=== PATIENT | male | born 1975 | race Caucasian/White ===

== ENCOUNTER 2024-06-22 14:15 | Emergency (ER) | payer SELFPAY ==
[2024-06-22] VITALS (8 sets, daily range): BP systolic 126–145; BP diastolic 78–91; PULSE 97–120; RESP 16–18; TEMP 36.8; O2SAT 92–99; BMI 28.0
--- NOTE | 2024-06-22 15:37 | W.ED.GENADLT ---
Documented by User: Ari Loo DO 06/24/24 06:04 HPI - General Adult General: Chief complaint: General Medical Stated complaint: Headache, SOB, neck hurting Time Seen by Provider: 06/22/24 15:20 History of Present Illness: 49-year-old male presents emergency room complaining of generally not feeling well, neck pain short of breath nonproductive cough been going on for last couple of days. No chest pain no abdominal pain. Denies any diarrhea no hematochezia or melena. He has not noted anything that aggravates or relieves his symptoms. He is mildly tachycardic on arrival no history of DVT or PE Associated symptoms: Reports dyspnea and headache(s); Deny chest pain or rash Review of Systems Const: Denies: fever(s) or chills Card: Denies: chest pain Resp: Reports: dyspnea and non-productive cough GI: Denies: abdominal pain : Denies: dysuria, urinary frequency or urinary urgency Musc: Reports: neck pain; Denies: back pain Skin/Breast: Denies: rash Neuro: Reports: headache(s) PFS ED PFSH: Medical History (Updated 06/22/24 @ 19:14 by Sathya Newberry DO) HTN (hypertension) Palpitations Physical Exam Const: COMMON NORMALS: no acute distress GENERAL APPEARANCE: cooperative ORIENTATION/CONSCIOUSNESS: Yes awake, Yes oriented to person, Yes oriented to place and Yes oriented to time HENMT: COMMON NORMALS: normocephalic, atraumatic and hearing grossly normal bilaterally HEAD & SCALP: normocephalic and atraumatic Resp: COMMON NORMALS: normal respiratory effort, No retractions, No use of accessory muscles and clear to auscultation bilaterally AUSCULTATION: clear to auscultation bilaterally Cardio: COMMON NORMALS: regular rate, regular rhythm and No murmurs present (Cardio) RATE: regular rate RHYTHM: regular rhythm GI: COMMON NORMALS: Soft to palpation and No hepatosplenomegaly present AUSCULTATION: Yes normoactive bowel sounds PALPATION: Yes Soft to palpation, No Tenderness to palpation present (GI), No Guarding due to palpation present (GI) and Yes No hepatosplenomegaly present Extremity: COMMON NORMALS: normal to inspection, capillary refill normal, no clubbing, cyanosis or edema, no calf tenderness and no pedal edema Neuro: SENSORIUM/ORIENTATION: Yes oriented to person, Yes oriented to place and Yes oriented to time Skin: COMMON NORMALS: no rashes or lesions noted GENERAL SKIN EXAM: no rashes or lesions noted Course Vital Signs: Vital signs: Vital Signs Temperature 98.3 F 06/22/24 20:36 Pulse Rate 108 H 06/22/24 20:36 Respiratory Rate 16 06/22/24 20:36 Blood Pressure 145/91 06/22/24 20:36 Pulse Oximetry 99 06/22/24 20:36 Oxygen Delivery Me thod Room Air 06/22/24 18:07 MDM - General Adult Medical Decision Making Care signed out to Dr. Newberry at change of shift. See final notes for diagnosis and disposition. Lab Data 06/22/24 15:25 06/22/24 15:25 Radiology Impressions Chest X-Ray 06/22/24 15:40 IMPRESSION: Mild bibasilar peribronchial thickening suggestive of bronchitis or early bronchopneumonia, otherwise without confluent consolidation at this time. Chest CTA 06/22/24 17:08 IMPRESSION: 1. No evidence of pulmonary embolism to the segmental level. Limited evaluation of distal segmental and subsegmental branches . 2. Moderate emphysema. Mild patchy bibasilar atelectasis and peribronchial thickening, please correlate clinically for any evidence of COPD exacerbation. No focal pneumonic consolidation. 3. Mild diffuse hepatic steatosis. 4. Partially imaged transverse colonic wall thickening suggestive colitis. COMMENTS: The presence of pulmonary emphysema on CT is an independent risk factor for lung cancer. In the absence of a history or active diagnosis of lung cancer, it is recommended that this patient with emphysema be evaluated for enrollment in a low dose CT lung cancer screening program. Laboratory Results WBC 10.54 10^3/uL (3.29-11.43) 06/22/24 15:25 RBC 4.39 10^6/uL (3.85-5.65) 06/22/24 15:25 Hgb 14.40 g/dL (11.27-16.99) 06/22/24 15:25 Hct 42.4 % (37-53) 06/22/24 15:25 MCV 96.6 fl (82-101) 06/22/24 15:25 MCH 32.8 pg (27-33) 06/22/24 15:25 MCHC 34.0 g/dL (30-55) 06/22/24 15:25 RDW 14.3 % (12.1-15.1) 06/22/24 15:25 Plt Count 266 10^3/cmm (157-399) 06/22/24 15:25 MPV 10.6 fL (7.4-10.4) H 06/22/24 15:25 Neut % (Auto) 76.4 % 06/22/24 15:25 Lymph % (Auto) 15.2 % 06/22/24 15:25 Mckean % (Auto) 6.9 % 06/22/24 15:25 Eos % (Auto) 0.7 % 06/22/24 15:25 Baso % (Auto) 0.4 % 06/22/24 15:25 Neut # (Auto) 8.06 10^3/uL (1.8-7.7) H 06/22/24 15:25 Lymph # (Auto) 1.6 10^3/uL (0.8-4.8) 06/22/24 15:25 Mckean # (Auto) 0.7 10^3/uL (0.2-0.9) 06/22/24 15:25 Eos # (Auto) 0.1 10^3/uL (0.0-0.8) 06/22/24 15:25 Baso # (Auto) 0.0 10^3/uL (0.0-0.1) 06/22/24 15:25 Nucleated RBC % (auto) 0 % 06/22/24 15:25 Nucleated RBCs # 0.0 /100WBC 06/22/24 15:25 D-Dimer 10.11 ug/mLFEU (0-0.59) H 06/22/24 15:25 Sodium 139 mmol/L (136-145) 06/22/24 15:25 Potassium 3.8 mmol/L (3.5-5.1) 06/22/24 15:25 Chloride 104 mmol/L (98-107) 06/22/24 15:25 Carbon Dioxide 23 mmol/L (22-29) 06/22/24 15:25 Anion Gap 15.8 (5-19) 06/22/24 15:25 BUN 8 mg/dL (6-20) 06/22/24 15:25 Creatinine 0.8 mg/dL (0.7-1.2) 06/22/24 15:25 GFR Calculation 101.9 mL/min (90-130) 06/22/24 15:25 Glucose 123 mg/dL (65-115) H 06/22/24 15:25 Calculated Osmolality 288 mOsm/kg (285-295) 06/22/24 15:25 Lactic Acid 2.1 mmol/L (0.5-2.2) 06/22/24 15:25 Lactic Acid (Sepsis) 0.9 mmol/L (0.5-2.2) 06/22/24 18:13 Calcium 8.8 mg/dL (8.5-10.5) 06/22/24 15:25 Total Bilirubin 0.4 mg/dL (0.15-1.2) 06/22/24 15:25 AST 17 U/L (0-40) 06/22/24 15:25 ALT 16 U/L (0-41) 06/22/24 15:25 Alkaline Phosphatase 130 U/L (40-130) 06/22/24 15:25 Troponin T Baseline 13 ng/L (0-15) 06/22/24 15:25 Troponin T 120 Minute 11.70 ng/L (0-15) 06/22/24 17:20 Delta Troponin T -1.30 ABS# (0-10) L 06/22/24 17:20 Total Protein 7.3 g/dL (6.6-8.7) 06/22/24 15:25 Albumin 4.2 g/dL (3.5-5.2) 06/22/24 15:25 Globulin 3.1 g/dL (1.3-4.6) 06/22/24 15:25 Lyme Ab (Western Blot) <0.90 index 06/22/24 16:18 Coronavirus 229E (PCR) Not detected (NOT DETECT) 06/22/24 15:47 SARS-CoV-2 (PCR) Not detected (NOT DETECT) 06/22/24 15:47 Discharge Plan Discharge Patient Disposition: Home Clinical Impression: COPD, moderate Condition: Stable Prescriptions: New prednisone 50 mg tablet 50 mg PO DAILY Qty: 5 0RF amoxicillin-pot clavulanate 875-125 mg tablet 1 tab PO Q12H Qty: 20 0RF albuterol sulfate 90 mcg/actuation HFA aerosol inhaler 2 inh inhalation QID PRN (Reason: shortness of breath or wheezing) Qty: 8.5 0RF Discharge Orders: Discharge ED (Routine); Ordered 06/22/24 Ordered By: Satyha Newberry Patient Instructions: COPD (Chronic Obstructive Pulmonary Disease) (ED) Activity Restrictions/Additional Instructions: Your CT scan of your chest showed you have moderate to COPD but no blood clot. This may be due to all your years of history of smoking. Please take all medicine as directed. Please follow-up with your family practice doctor the next 7 to 10 days for further evaluation and treatment. Thank you for choosing [facility] for your healthcare needs today. Please realize that you were seen in the emergency department and that we are providing you with an emergency medical screening exam and this may not be a complete and all exclusive of all testing and/or medical workup we may need to determine your element or severity of your illness. It is very important that you follow-up as instructed with your primary care provider or specialist for the additional evaluation and to discuss your medical treatment plan. You may return to the emergency department should you have concerns or if your condition changes or worsens in any way. Coding Level of Care Code ED Supervisor In Circuit Testing for Chg Fwd Documented by User: Sathya Newberry DO 06/22/24 19:16 HPI - General Adult General: Chief complaint: General Medical Stated complaint: Headache, SOB, neck hurting Time Seen by Provider: 06/22/24 15:20 [facility] ED PFSH: Medical History (Updated 06/22/24 @ 19:14 by Sathya Newberry DO) HTN (hypertension) Palpitations Course Vital Signs: Vital signs: Vital Signs Temperature 98.3 F 06/22/24 20:36 Pulse Rate 108 H 06/22/24 20:36 Respiratory Rate 16 06/22/24 20:36 Blood Pressure 145/91 06/22/24 20:36 Pulse Oximetry 99 06/22/24 20:36 Oxygen Delivery Me thod Room Air 06/22/24 18:07 MDM - General Adult Medical Decision Making Care signed out to Dr. Newberry at change of shift. See final notes for diagnosis and disposition. Care turned over at shift change, the patient CTA showed no evidence of PE, did show evidence of moderate emphysema. Patient did admit to being a smoker of 20 to 30-year history but quit a while back per him. Patient results was discussed with him in detail. Will place patient on albuterol and prednisone. Patient be discharged back to follow-up with his primary care doctor. Lab Data 06/22/24 15:25 06/22/24 15:25 Radiology Impressions Chest X-Ray 06/22/24 15:40 IMPRESSION: Mild bibasilar peribronchial thickening suggestive of bronchitis or early bronchopneumonia, otherwise without confluent consolidation at this time. Chest CTA 06/22/24 17:08 IMPRESSION: 1. No evidence of pulmonary embolism to the segmental level. Limited evaluation of distal segmental and subsegmental branches . 2. Moderate emphysema. Mild patchy bibasilar atelectasis and peribronchial thickening, please correlate clinically for any evidence of COPD exacerbation. No focal pneumonic consolidation. 3. Mild diffuse hepatic steatosis. 4. Partially imaged transverse colonic wall thickening suggestive colitis. COMMENTS: The presence of pulmonary emphysema on CT is an independent risk factor for lung cancer. In the absence of a history or active diagnosis of lung cancer, it is recommended that this patient with emphysema be evaluated for enrollment in a low dose CT lung cancer screening program. Laboratory Results WBC 10.54 10^3/uL (3.29-11.43) 06/22/24 15:25 RBC 4.39 10^6/uL (3.85-5.65) 06/22/24 15:25 Hgb 14.40 g/dL (11.27-16.99) 06/22/24 15:25 Hct 42.4 % (37-53) 06/22/24 15:25 MCV 96.6 fl (82-101) 06/22/24 15:25 MCH 32.8 pg (27-33) 06/22/24 15:25 MCHC 34.0 g/dL (30-55) 06/22/24 15:25 RDW 14.3 % (12.1-15.1) 06/22/24 15:25 Plt Count 266 10^3/cmm (157-399) 06/22/24 15:25 MPV 10.6 fL (7.4-10.4) H 06/22/24 15:25 Neut % (Auto) 76.4 % 06/22/24 15:25 Lymph % (Auto) 15.2 % 06/22/24 15:25 Mckean % (Auto) 6.9 % 06/22/24 15:25 Eos % (Auto) 0.7 % 06/22/24 15:25 Baso % (Auto) 0.4 % 06/22/24 15:25 Neut # (Auto) 8.06 10^3/uL (1.8-7.7) H 06/22/24 15:25 Lymph # (Auto) 1.6 10^3/uL (0.8-4.8) 06/22/24 15:25 Mckean # (Auto) 0.7 10^3/uL (0.2-0.9) 06/22/24 15:25 Eos # (Auto) 0.1 10^3/uL (0.0-0.8) 06/22/24 15:25 Baso # (Auto) 0.0 10^3/uL (0.0-0.1) 06/22/24 15:25 Nucleated RBC % (auto) 0 % 06/22/24 15:25 Nucleated RBCs # 0.0 /100WBC 06/22/24 15:25 D-Dimer 10.11 ug/mLFEU (0-0.59) H 06/22/24 15:25 Sodium 139 mmol/L (136-145) 06/22/24 15:25 Potassium 3.8 mmol/L (3.5-5.1) 06/22/24 15:25 Chloride 104 mmol/L (98-107) 06/22/24 15:25 Carbon Dioxide 23 mmol/L (22-29) 06/22/24 15:25 Anion Gap 15.8 (5-19) 06/22/24 15:25 BUN 8 mg/dL (6-20) 06/22/24 15:25 Creatinine 0.8 mg/dL (0.7-1.2) 06/22/24 15:25 GFR Calculation 101.9 mL/min (90-130) 06/22/24 15:25 Glucose 123 mg/dL (65-115) H 06/22/24 15:25 Calculated Osmolality 288 mOsm/kg (285-295) 06/22/24 15:25 Lactic Acid 2.1 mmol/L (0.5-2.2) 06/22/24 15:25 Lactic Acid (Sepsis) 0.9 mmol/L (0.5-2.2) 06/22/24 18:13 Calcium 8.8 mg/dL (8.5-10.5) 06/22/24 15:25 Total Bilirubin 0.4 mg/dL (0.15-1.2) 06/22/24 15:25 AST 17 U/L (0-40) 06/22/24 15:25 ALT 16 U/L (0-41) 06/22/24 15:25 Alkaline Phosphatase 130 U/L (40-130) 06/22/24 15:25 Troponin T Baseline 13 ng/L (0-15) 06/22/24 15:25 Troponin T 120 Minute 11.70 ng/L (0-15) 06/22/24 17:20 Delta Troponin T -1.30 ABS# (0-10) L 06/22/24 17:20 Total Protein 7.3 g/dL (6.6-8.7) 06/22/24 15:25 Albumin 4.2 g/dL (3.5-5.2) 06/22/24 15:25 Globulin 3.1 g/dL (1.3-4.6) 06/22/24 15:25 Lyme Ab (Western Blot) <0.90 index 06/22/24 16:18 Coronavirus 229E (PCR) Not detected (NOT DETECT) 06/22/24 15:47 SARS-CoV-2 (PCR) Not detected (NOT DETECT) 06/22/24 15:47 All radiology interpretation(s) finalized by discharge Discharge Plan Discharge Patient Disposition: Home Clinical Impression: COPD, moderate Condition: Stable Prescriptions: New prednisone 50 mg tablet 50 mg PO DAILY Qty: 5 0RF amoxicillin-pot clavulanate 875-125 mg tablet 1 tab PO Q12H Qty: 20 0RF albuterol sulfate 90 mcg/actuation HFA aerosol inhaler 2 inh inhalation QID PRN (Reason: shortness of breath or wheezing) Qty: 8.5 0RF Discharge Orders: Discharge ED (Routine); Ordered 06/22/24 Ordered By: Sathya Newberry Patient Instructions: COPD (Chronic Obstructive Pulmonary Disease) (ED) Activity Restrictions/Additional Instructions: Your CT scan of your chest showed you have moderate to COPD but no blood clot. This may be due to all your years of history of smoking. Please take all medicine as directed. Please follow-up with your family practice doctor the next 7 to 10 days for further evaluation and treatment. Thank you for choosing [facility] for your healthcare needs today. Please realize that you were seen in the emergency department and that we are providing you with an emergency medical screening exam and this may not be a complete and all exclusive of all testing and/or medical workup we may need to determine your element or severity of your illness. It is very important that you follow-up as instructed with your primary care provider or specialist for the additional evaluation and to discuss your medical treatment plan. You may return to the emergency department should you have concerns or if your condition changes or worsens in any way. Coding Level of Care Code ED Supervisor In Circuit Testing for Jan Sauceda
--- NOTE | 2024-06-22 15:40 | XRR_ITS ---
PROCEDURE INFORMATION: Exam: XR Chest Exam date and time: 06/22/2024 4:45 PM Age: 49 years old Clinical indication: Cough and shortness of breath; Additional info: Dyspnea/cough TECHNIQUE: Imaging protocol: Radiologic exam of the chest. Views: 1 view. COMPARISON: No relevant prior studies available. FINDINGS: Lungs: Minor left basilar strand-like scar/atelectasis. Mild bibasilar peribronchial thickening No consolidation. Pleural spaces: Unremarkable. No pleural effusion. No pneumothorax. Heart/Mediastinum: Unremarkable. No cardiomegaly. Bones/joints: Unremarkable. XR/XR chest 1V portable [id number] IMPRESSION: Mild bibasilar peribronchial thickening suggestive of bronchitis or early bronchopneumonia, otherwise without confluent consolidation at this time.
[2024-06-22 15:51] LABS: Basophils % 0.4 %; Eosinophils # 0.1 10^3/uL (0.0-0.8); Eosinophils % 0.7 %; Hematocrit 42.4 % (37-53); Lymphocytes # 1.6 10^3/uL (0.8-4.8); Lymphocytes % 15.2 %; Mean Corpuscular Hemoglobin 32.8 pg (27-33); Mean Corpuscular Volume 96.6 fl (82-101); Mean Platelet Volume 10.6 fL (7.4-10.4); Monocytes # 0.7 10^3/uL (0.2-0.9); Monocytes % 6.9 %; Neutrophils # 8.06 10^3/uL (1.8-7.7); Neutrophils % 76.4 %; Nucleated Red Blood Cells % 0 %; Platelet Count 266 10^3/cmm (157-399); Red Blood Count 4.39 10^6/uL (3.85-5.65); Red Cell Distribution Width 14.3 % (12.1-15.1); White Blood Count 10.54 10^3/uL (3.29-11.43)
[2024-06-22] MEDS: sodium chloride 0.9% 1,000 ML 999 ML IV (16:04)
[2024-06-22 16:07] LABS: Alanine Aminotransferase 16 U/L (0-41); Albumin Level 4.2 g/dL (3.5-5.2); Alkaline Phosphatase 130 U/L (40-130); Anion Gap 15.8 (5-19); Aspartate Amino Transferase 17 U/L (0-40); Blood Urea Nitrogen 8 mg/dL (6-20); Calcium 8.8 mg/dL (8.5-10.5); Carbon Dioxide 23 mmol/L (22-29); Chloride 104 mmol/L (98-107); Creatinine Clr Calc Pharmacy 118.8107; Globulin 3.1 g/dL (1.3-4.6); Glomerular Filtration Rate 101.9 mL/min (90-130); Glucose 123 mg/dL (65-115); Osmolality Calculated 288 mOsm/kg (285-295); Potassium 3.8 mmol/L (3.5-5.1); Sodium 139 mmol/L (136-145); Total Bilirubin 0.4 mg/dL (0.15-1.2); Total Protein 7.3 g/dL (6.6-8.7)
[2024-06-22 16:08] LABS: Lactic Sepsis W/Reflex 2.1 mmol/L (0.5-2.2)
[2024-06-22] MEDS: methylPREDNISolone sod succ 125 mg/2 mL INJ IVP (16:33)
[2024-06-22] MEDS: ipratropium-albuterol 3 mL Neb INHALATION (16:45)
[2024-06-22 16:59] LABS: D Dimer 10.11 ug/mLFEU (0-0.59)
--- NOTE | 2024-06-22 17:02 | ECG_ITS ---
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 Measurements Intervals [place] Rate: 104 P: 48 [place]: 145 QRS: -55 QRSD: 107 T: 50 QT: 327 QTc: 431 Interpretive Statements SINUS TACHYCARDIA PATTERN CONSISTENT WITH PULMONARY DISEASE LEFT ANTERIOR FASCICULAR BLOCK [QRS AXIS <= -45, QR IN I, RS IN II] No previous ECG available for comparison Electronically Signed On 06-22-2024 18:10:14 CDT by Lasha Alexander M.D. [id number]
--- NOTE | 2024-06-22 17:08 | CTR_ITS ---
PROCEDURE INFORMATION: Exam: CTA Chest With Contrast Exam date and time: 06/22/2024 5:34 PM Age: 49 years old Clinical indication: Angina; Additional info: Chest pain dyspnea TECHNIQUE: Imaging protocol: Computed tomographic angiography of the chest with contrast. Exam focused on the arteries. 3D rendering (Not supervised by radiologist): MIP and/or 3D reconstructed images were created by the technologist. Radiation optimization: All CT scans at this facility use at least one of these dose optimization techniques: automated exposure control; mA and/or kV adjustment per patient size (includes targeted exams where dose is matched to clinical indication); or iterative reconstruction. Contrast material: OMNI 350; Contrast volume: 100 ml; Contrast route: INTRAVENOUS (IV); COMPARISON: CR XR chest 1V portable [id number] 06/22/2024 4:45 PM RADIATION DOSE METRICS: Total DLP (mGy-cm): 414 FINDINGS: Pulmonary arteries: Main pulmonary artery is normal in contour and caliber. No pulmonary emboli to the segmental branch level. Evaluation of some of the distal segmental and subsegmental branches is limited by suboptimal opacification. Aorta: Assessment of the ascending thoracic aorta limited by pulsation artifact without aneurysm formation or obvious dissection flap. Lungs: Moderate centrilobular emphysema. Patent central airways. Patchy bibasilar opacities in the lower lobes consistent with atelectatic change without focal consolidation. Mild bandlike atelectasis in the lingula. Mild peripheral bronchial wall thickening. Pleural spaces: Unremarkable. No pneumothorax. No pleural effusion. Heart: borderline cardiac silhouette size. Moderate coronary calcification. Lymph nodes: No axillary adenopathy. Borderline enlarged paratracheal and subcarinal adenopathy likely reactive. Liver: Mild diffuse hepatic steatosis. Spleen: Punctate calcified splenic granulomas. Intestine: Partially imaged transverse colon demonstrates mild diffuse wall thickening suggestive of colitis. Bones/joints: Moderate lower thoracic and upper lumbar spondylosis. Soft tissues: Unremarkable. CT/CT angio chest PE protcl [id number] IMPRESSION: 1. No evidence of pulmonary embolism to the segmental level. Limited evaluation of distal segmental and subsegmental branches . 2. Moderate emphysema. Mild patchy bibasilar atelectasis and peribronchial thickening, please correlate clinically for any evidence of COPD exacerbation. No focal pneumonic consolidation. 3. Mild diffuse hepatic steatosis. 4. Partially imaged transverse colonic wall thickening suggestive colitis. COMMENTS: The presence of pulmonary emphysema on CT is an independent risk factor for lung cancer. In the absence of a history or active diagnosis of lung cancer, it is recommended that this patient with emphysema be evaluated for enrollment in a low dose CT lung cancer screening program.
[2024-06-22 17:27] LABS: Reflex Lactate Order REFLEX LACTIC ORDERD
[2024-06-22 17:29] LABS: Troponin(5th) Baseline 13 ng/L (0-15)
[2024-06-22] MEDS: iohexol 350 mg/mL 500 mL Btl (per mL) IV (17:39)
[2024-06-22 17:48] LABS: Adenovirus Not Detected (NOT DETECT); Chlamydia Pneumoniae Not Detected (NOT DETECT); Coronavirus 229E,HKU1,NL63,OC4 Not Detected (NOT DETECT); Human Metapneumovirus Not Detected (NOT DETECT); Human Rhinovirus/Enterovirus Not Detected (NOT DETECT); Influenza A Not Detected (NOT DETECT); Influenza A H1 Not Detected (NOT DETECT); Influenza A H1-2009 Not Detected (NOT DETECT); Influenza A H3 Not Detected (NOT DETECT); Influenza B Not Detected (NOT DETECT); Mycoplasma Pneumoniae Not Detected (NOT DETECT); Parainfluenza Virus Type 1 Not Detected (NOT DETECT); Parainfluenza Virus Type 2 Not Detected (NOT DETECT); Parainfluenza Virus Type 3 Not Detected (NOT DETECT); Parainfluenza Virus Type 4 Not Detected (NOT DETECT); Respiratory Syncytial Virus A Not Detected (NOT DETECT); Respiratory Syncytial Virus B Not Detected (NOT DETECT); SARS-COV-2 Not Detected (NOT DETECT)
[2024-06-22 18:36] LABS: Lactic Acid level (Lactate) 0.9 mmol/L (0.5-2.2)
--- NOTE | 2024-06-22 18:47 | ECG_ITS ---
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 Measurements Intervals [place] Rate: 104 P: 54 [place]: 148 QRS: -49 QRSD: 108 T: 51 QT: 329 QTc: 434 Interpretive Statements SINUS TACHYCARDIA PATTERN CONSISTENT WITH PULMONARY DISEASE LEFT ANTERIOR FASCICULAR BLOCK [QRS AXIS <= -45, QR IN I, RS IN II] Compared to ECG 06/22/2024 17:02:34 No significant changes Electronically Signed On 06-23-2024 10:30:45 CDT by Lasha Alexander M.D. [id number]
[2024-06-23 13:59] LABS: Lyme AB Screen <0.90 index
[2024-06-26 21:44] LABS: E. Chaffeensis AB IGG <1:64; E. Chaffeensis AB IGM <1:20
[2024-06-29 16:09] LABS: RMSF IGG DETECTED; RMSF IGM NOT DETECTED
== END 2024-06-22 19:35 | disposition home or self-care (01) ==
PROVIDERS: Physician Assistant; Emergency Provider Family Medicine
DX: J44.9 Chronic obstructive pulmonary disease, unspecified (principal); I10 Essential (primary) hypertension; Z11.52 Encounter for screening for COVID-19
CPT/HCPCS: 36415; 71045; 71275; 80053; 83605; 84484; 85025; 85378; 86618; 86666; 86757; 87635; 93005; 94640; 96361; 96374; 99285; J2919; J7030; Q9967

== ENCOUNTER 2025-03-12 12:27 | Observation (INO) | payer OTHER, SELFPAY ==
[2025-03-12] VITALS (114 sets, daily range): BP systolic 114–157; BP diastolic 75–111; PULSE 68–104; RESP 12–32; TEMP 36.4; O2SAT 89–97
--- NOTE | 2025-03-12 12:36 | CTR_ITS ---
PROCEDURE INFORMATION: Exam: CT Head Without Contrast Exam date and time: 03/12/2025 12:35 PM Age: 50 years old Clinical indication: Stroke-like symptoms; Altered mental status/memory loss; Left upper extremity and left lower extremity numbness/paresthesia; Additional info: Stroke like symptoms TECHNIQUE: Imaging protocol: Computed tomography of the head without contrast. Radiation optimization: All CT scans at this facility use at least one of these dose optimization techniques: automated exposure control; mA and/or kV adjustment per patient size (includes targeted exams where dose is matched to clinical indication); or iterative reconstruction. Other technique: STROKE PROTOCOL was implemented. COMPARISON: No relevant prior studies available. RADIATION DOSE METRICS: Total DLP (mGy-cm): 1089.58 FINDINGS: Brain: Normal. No hemorrhage. Unremarkable white matter. No mass effect. Cerebral ventricles: No ventriculomegaly. Paranasal sinuses: Visualized sinuses are unremarkable. No fluid levels. Mastoid air cells: Visualized mastoid air cells are well aerated. Bones: Unremarkable. No acute fracture. Soft tissues: Unremarkable. CT/CT head thrombolytic [id number] IMPRESSION: No acute intracranial abnormality. ASSESSMENT: ASPECTS ([place] Stroke Program Early CT Score) is 10.
--- NOTE | 2025-03-12 12:50 | ECG_ITS ---
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1975 Requested By: Ari Hernandes Order Number: [id number] Alfonzo MD: ANDI YANCEY Measurements Intervals [place] Rate: 100 P: 50 [place]: 149 QRS: -64 QRSD: 102 T: 41 QT: 338 QTc: 436 Interpretive Statements SINUS TACHYCARDIA POSSIBLE LEFT ATRIAL ENLARGEMENT [-0.1mV P-WAVE IN V1/V2] PATTERN CONSISTENT WITH PULMONARY DISEASE INCOMPLETE RIGHT BUNDLE BRANCH BLOCK [90+ ms QRS DURATION, TERMINAL R IN V1/V2, 40+ ms S IN I/aVL/V4/V5/V6] LEFT ANTERIOR FASCICULAR BLOCK [QRS AXIS <= -45, QR IN I, RS IN II] Compared to ECG 06/22/2024 18:20:05 Incomplete right bundle-branch block now present Electronically Signed On 03-14-2025 20:59:49 CDT by ANDI YANCEY [id number]
--- NOTE | 2025-03-12 12:58 | ED_ITS ---
HPI - Neuro Symptoms/Deficit 2 General: Chief Complaint: Neuro Symptoms/Deficit Stated Complaint: stroke like symptoms Time Seen by Provider: 03/12/25 12:50 History of Present Illness: 50-[facility] left- sided weakness. He was at work and suddenly began around 12:00 today. He is complaining of left arm and leg weakness as well as some numbness in his face and difficulty with speech. His initial NIH was 5 Associated symptoms: Deny chest pain Related Data Home Medications ?Medication ?Instructions ?Recorded ?Confirmed ibuprofen 200 mg tablet (Advil) 400 - 600 mg PO Q6H MT N Fever Or 03/12/25 03/12/25 Pain ubtejuxlnrze-sdc-gvsyq acid-vit 1 tab PO DAILY 5 03/12/25 K-lycop 400 mcg-20 mcg-370 mcg tablet (Men's 50 Plus Multivitamin) Previous Rx's ?Medication ?Instructions ?Recorded albuterol sulfate 90 mcg/actuation 2 inh inhalation QI D PRN shortness 06/22/24 aerosol inhaler of breath or wheezing #8.5 g agustín Allergies Allergy/AdvReac Type Severity Reaction Status Date / Time No Known Allergies Allergy Verified 03/12/25 12:47 Review of Systems 2 Const: Denies: fever(s) or chills Card: Denies: chest pain Resp: Denies: dyspnea GI: Denies: abdominal pain : Denies: dysuria, urinary frequency or urinary urgency Musc: Denies: neck pain or back pain Skin/Breast: Denies: rash PFSH ED 2 PFSH: Medical History HTN (hypertension) Palpitations NIH stroke score 2 NIHSS: Level Of Consciousness - 1a: 0 Level Of Consciousness Questions - 1b: Both Correct Level Of Consciousness Commands - 1c: Both Correct Best Gaze - 2: Normal Visual Burciaga - 3: No Visual Loss Facial Palsy - 4: N ormal Motor Arm Right - 5: No Drift Motor Arm Left - 5: No Drift Motor Leg Right - 6: No Drift Motor Leg Left - 6: Drift Limb Ataxia - 7: Present In Two Limbs Sensory - 8: Mild To Moderate Loss Best Language - 9: M ild/Moderate Aphasia Dysarthia - 10: Normal Extinction And Inattention - 11: 0 Score: Total Score: 5 Physical Exam 2 Const: GENERAL APPEARANCE: cooperative ORIENTATION/CONSCIOUSNESS: Yes awake, Yes oriented to person, Yes oriented to place and Yes oriented to time HENMT: COMMON NORMALS: normocephalic, atraumatic and hearing grossly normal bilaterally HEAD & SCALP: normocephalic and atraumatic Resp: COMMON NORMALS: normal respiratory effort, No retractions, No use of accessory muscles and clear to auscultation bilaterally AUSCULTATION: clear to auscultation bilaterally Cardio: COMMON NORMALS: regular rate, regular rhythm and No murmurs present (Cardio) RATE: regular rate RHYTHM: regular rhythm GI: COMMON NORMALS: Soft to palpation and No hepatosplenomegaly present A USCULTATION: Yes normoactive bowel sounds PALPATION: Yes Soft to palpation, No Tenderness to palpation present (GI), No Guarding due to palpation present (GI) and Yes No hepatosplenomegaly present Extremity: COMMON NORMALS: normal to inspection, capillary refill normal, no clubbing, cyanosis or edema, no calf tenderness and no pedal edema Neuro: SENSORIUM/ORIENTATION: Yes oriented to person, Yes oriented to place and Yes oriented to time Skin: COMMON NORMALS: no rashes or lesions noted GENERAL SKIN EXAM: no rashes or lesions noted Course 2 Vital Signs: Vital signs: Vital Signs Temperature 97.5 F L 03/12/25 12:32 Pulse Rate 92 03/12/25 16:55 Respiratory Rate 19 H 03/12/25 16:55 Blood Pressure 154/102 03/12/25 16:55 Pulse Oximetry 93 03/12/25 16:55 Oxygen Delivery Me thod Room Air 03/12/25 15:47 MDM - Neuro Symptoms/Deficit Medical Decision Making NIH of 5. Patient awake and alert able to discuss he would consents to [place] and case and would like to proceed. I contacted Dr. Duran to review the case with her she concurs CT head has been negative he is not on any anticoagulants blood pressure is well-controlled no recent surgeries. Patient's symptoms improved after TN K CTA head and neck unremarkable discussed with hospitalist orders written for ICU Medical Records I reviewed the patient's medical records. Lab Data I reviewed the patient's lab results. 03/12/25 12:57 03/12/25 12:[address] 03/12/25 12:36 IMPRESSION: No acute intracranial abnormality. ASSESSMENT: ASPECTS ([place] Stroke Program Early CT Score) is 10. ADDENDUM: 03/12/25 1252 Findings were discussed with Dr. Loo at 03/12/2025 12:51 PM CDT. Head/Neck CTA 03/12/25 13:43 IMPRESSION: No large vessel stenosis or occlusion. IMPRESSION: No stenosis or occlusion. REFERENCES: NASCET CRITERIA. The degree of stenosis in the cervical segment of the internal carotid artery is based on NASCET criteria. Normal is no stenosis. Mild is less than 50% stenosis. Moderate is 50-69% stenosis. Severe is 70% to 99% stenosis. Total occlusion is no detectable patent lumen. ADDENDUM: 03/12/25 1438 Findings were discussed with ARI LOO at 03/12/2025 2:36 PM CDT. Laboratory Results WBC 3.54 10^3/uL (3.29-11.43) 03/12/25 12:57 RBC 4.48 10^6/uL (3.85-5.65) 03/12/25 12:57 Hgb 14.30 g/dL (11.27-16.99) 03/12/25 12:57 Hct 42.0 % (37-53) 03/12/25 12:57 MCV 93.8 fl (82-101) 03/12/25 12:57 MCH 31.9 pg (27-33) 03/12/25 12:57 MCHC 34.0 g/dL (30-55) 03/12/25 12:57 RDW 13.2 % (12.1-15.1) 03/12/25 12:57 Plt Count 219 10^3/cmm (157-399) 03/12/25 12:57 MPV 10.0 fL (7.4-10.4) 03/12/25 12:57 Neut % (Auto) 32.2 % 03/12/25 12:57 Lymph % (Auto) 52.8 % 03/12/25 12:57 [place] % (Auto) 11.6 % 03/12/25 12:57 Eos % (Auto) 2.8 % 03/12/25 12:57 Baso % (Auto) 0.3 % 03/12/25 12:57 Neut # (Auto) 1.14 10^3/uL (1.8-7.7) L 03/12/25 12:57 Lymph # (Auto) 1.9 10^3/uL (0.8-4.8) 03/12/25 12:57 [place] # (Auto) 0.4 10^3/uL (0.2-0.9) 03/12/25 12:57 Eos # (Auto) 0.1 10^3/uL (0.0-0.8) 03/12/25 12:57 Baso # (Auto) 0.0 10^3/uL (0.0-0.1) 03/12/25 12:57 Nucleated RBC % (auto) 0 % 03/12/25 12:57 Nucleated RBCs # 0.0 /100WBC 03/12/25 12:57 PT 14.30 SECONDS (12.1-14.9) 03/12/25 12:57 INR 1.03 (0.8-1.2) 03/12/25 12:57 APTT 28.8 SECONDS (23.9-36.7) 03/12/25 12:57 Sodium 140 mmol/L (136-145) 03/12/25 12:57 Potassium 4.1 mmol/L (3.5-5.1) 03/12/25 12:57 Chloride 105 mmol/L (98-107) 03/12/25 12:57 Carbon Dioxide 23 mmol/L (22-29) 03/12/25 12:57 Anion Gap 16.1 (5-19) 03/12/25 12:57 BUN 6 mg/dL (6-20) 03/12/25 12:57 Creatinine 0.9 mg/dL (0.7-1.2) 03/12/25 12:57 GFR Calculation 88.6 mL/min (90-130) L 03/12/25 12:57 Glucose 95 mg/dL (65-115) 03/12/25 12:57 POC Glucose 108 mg/dL (70-110) 03/12/25 12:43 Calculated Osmolality 287 mOsm/kg (285-295) 03/12/25 12:57 Calcium 8.6 mg/dL (8.5-10.5) 03/12/25 12:57 Total Bilirubin 0.2 mg/dL (0.15-1.2) 03/12/25 12:57 AST 25 U/L (0-40) 03/12/25 12:57 ALT 22 U/L (0-41) 03/12/25 12:57 Alkaline Phosphatase 82 U/L (40-130) 03/12/25 12:57 Total Protein 7.3 g/dL (6.6-8.7) 03/12/25 12:57 Albumin 4.1 g/dL (3.5-5.2) 03/12/25 12:57 Globulin 3.2 g/dL (1.3-4.6) 03/12/25 12:57 Urine Color Yellow (Yellow) 03/12/25 14:07 Urine Appearance Clear (CLEAR) 03/12/25 14:07 Urine pH 5.5 (5-7) 03/12/25 14:07 Ur Specific [place] 1.009 (1.005-1.030) 03/12/25 14:07 Urine Protein Negative (Negative) 03/12/25 14:07 Urine Glucose (UA) Negative (Normal) 03/12/25 14:07 Urine Ketones Negative (Negative) 03/12/25 14:07 Urine Blood Negative (Negative) 03/12/25 14:07 Urine Nitrate Negative (Negative) 03/12/25 14:07 Urine Bilirubin Negative (Negative) 03/12/25 14:07 Urine Urobilinogen 0.2 mg/dL (Negative) 03/12/25 14:07 Ur Leukocyte Esterase Negative (Negative) 03/12/25 14:07 Urine RBC 0-2 /hpf (0-2) 03/12/25 14:07 Urine WBC 0-5 /hpf (0-5) 03/12/25 14:07 Ur Squamous Epith Cells 0-5 /hpf (0-5) 03/12/25 14:07 Amorphous Sediment Not Reportable 03/12/25 14:07 Urine Bacteria None seen /hpf (NONE) 03/12/25 14:07 Hyaline Casts 0.81 /lpf 03/12/25 14:07 Urine Opiates Screen Negative ng/mL (Negative) 03/12/25 14:07 Ur Barbiturates Screen Negative ng/mL (Negative) 03/12/25 14:07 Ur Phencyclidine Scrn Negative ng/mL (Negative) 03/12/25 14:07 Ur Amphetamines Screen Negative ng/mL (Negative) 03/12/25 14:07 U Benzodiazepines Scrn Negative ng/mL (Negative) 03/12/25 14:07 Urine Cocaine Screen Negative ng/mL (Negative) 03/12/25 14:07 U Marijuana (THC) Screen Negative ng/mL (Negative) 03/12/25 14:07 All radiology interpretation(s) finalized by discharge Discharge Plan Discharge Patient Disposition: Admitted As Inpatient Admit Provider: Pinky Azevedo Clinical Impression: Acute ischemic stroke, HTN (hypertension) Condition: Stable Coding Level of Care Code ED Ux Architect for Jan Sauceda
[2025-03-12 13:03] LABS: Basophils % 0.3 %; Eosinophils # 0.1 10^3/uL (0.0-0.8); Eosinophils % 2.8 %; Lymphocytes # 1.9 10^3/uL (0.8-4.8); Lymphocytes % 52.8 %; Mean Corpuscular Hemoglobin 31.9 pg (27-33); Mean Corpuscular Volume 93.8 fl (82-101); Monocytes # 0.4 10^3/uL (0.2-0.9); Monocytes % 11.6 %; Neutrophils # 1.14 10^3/uL (1.8-7.7); Neutrophils % 32.2 %; Nucleated Red Blood Cells % 0 %; Platelet Count 219 10^3/cmm (157-399); Red Blood Count 4.48 10^6/uL (3.85-5.65); Red Cell Distribution Width 13.2 % (12.1-15.1); White Blood Count 3.54 10^3/uL (3.29-11.43)
[2025-03-12 13:04] LABS: Glucose Point of Care 108 mg/dL (70-110)
[2025-03-12 13:15] LABS: INR 1.03 (0.8-1.2)
[2025-03-12 13:16] LABS: Partial Thromboplastin Time 28.8 SECONDS (23.9-36.7)
[2025-03-12 13:19] LABS: Alanine Aminotransferase 22 U/L (0-41); Albumin Level 4.1 g/dL (3.5-5.2); Alkaline Phosphatase 82 U/L (40-130); Anion Gap 16.1 (5-19); Aspartate Amino Transferase 25 U/L (0-40); Blood Urea Nitrogen 6 mg/dL (6-20); Calcium 8.6 mg/dL (8.5-10.5); Carbon Dioxide 23 mmol/L (22-29); Chloride 105 mmol/L (98-107); Creatinine Clr Calc Pharmacy 111.3216; Globulin 3.2 g/dL (1.3-4.6); Glomerular Filtration Rate 88.6 mL/min (90-130); Glucose 95 mg/dL (65-115); Osmolality Calculated 287 mOsm/kg (285-295); Potassium 4.1 mmol/L (3.5-5.1); Sodium 140 mmol/L (136-145); Total Bilirubin 0.2 mg/dL (0.15-1.2); Total Protein 7.3 g/dL (6.6-8.7)
[2025-03-12] MEDS: tenecteplase 50mg Kit (STROKE) 25 MG IVP (13:23)
[2025-03-12 13:35] LABS: Slide Review Slide Review Perform
--- NOTE | 2025-03-12 13:43 | CTR_ITS ---
PROCEDURE INFORMATION: Exam: CTA Head With Contrast, Arteriography Exam date and time: 03/12/2025 2:09 PM Age: 50 years old Clinical indication: Stroke-like symptoms; Left upper extremity and left lower extremity numbness/paresthesia; Additional info: Acute CVA TECHNIQUE: Imaging protocol: Computed tomographic angiography of the head with contrast. Exam focused on the arteries. 3D rendering (Not supervised by radiologist): MIP and/or 3D reconstructed images were created by the technologist. Radiation optimization: All CT scans at this facility use at least one of these dose optimization techniques: automated exposure control; mA and/or kV adjustment per patient size (includes targeted exams where dose is matched to clinical indication); or iterative reconstruction. Contrast material: OMNIPAQUE 350; Contrast volume: 100 ml; Contrast route: INTRAVENOUS (IV); COMPARISON: CT head thrombolytic [id number] 03/12/2025 12:35 PM RADIATION DOSE METRICS: Total DLP (mGy-cm): 484.12 FINDINGS: ANTERIOR CIRCULATION: Right internal carotid artery: Intracranial segment is patent with no significant stenosis. No aneurysm. Right middle cerebral artery: No occlusion or significant stenosis. No aneurysm. Right anterior cerebral artery: No occlusion or significant stenosis. No aneurysm. Left internal carotid artery: Intracranial segment is patent with no significant stenosis. No aneurysm. Left middle cerebral artery: No occlusion or significant stenosis. No aneurysm. Left anterior cerebral artery: No occlusion or significant stenosis. No aneurysm. POSTERIOR CIRCULATION: Right vertebral artery: No occlusion or significant stenosis. No aneurysm. Left vertebral artery: No occlusion or significant stenosis. No aneurysm. Basilar artery: No occlusion or significant stenosis. No aneurysm. Right posterior cerebral artery: No occlusion or significant stenosis. No aneurysm. Left posterior cerebral artery: No occlusion or significant stenosis. No aneurysm. Brain: No definite mass, mass effect, or midline shift. Cerebral ventricles: No ventriculomegaly. Bones/joints: Unremarkable. No acute fracture. Soft tissues: Unremarkable. PROCEDURE INFORMATION: Exam: CTA Neck With Contrast Exam date and time: 03/12/2025 2:09 PM Age: 50 years old Clinical indication: Stroke-like symptoms; Left upper extremity and left lower extremity numbness/paresthesia; Additional info: Acute CVA TECHNIQUE: Imaging protocol: Computed tomographic angiography of the neck with contrast. Exam focused on the cervical segments of the vasculature. 3D rendering (Not supervised by radiologist): MIP and/or 3D reconstructed images were created by the technologist. Radiation optimization: All CT scans at this facility use at least one of these dose optimization techniques: automated exposure control; mA and/or kV adjustment per patient size (includes targeted exams where dose is matched to clinical indication); or iterative reconstruction. Contrast material: OMNIPAQUE 350; Contrast volume: 100 ml; Contrast route: INTRAVENOUS (IV); COMPARISON: CT angio chest PE protcl [id number] 06/22/2024 5:34 PM RADIATION DOSE METRICS: Total DLP (mGy-cm): 484.12 FINDINGS: Right common carotid artery: No stenosis. No dissection or occlusion. Right internal carotid artery: No stenosis of the extracranial segment. No dissection or occlusion. Right external carotid artery: No occlusion or stenosis of the origin. Left common carotid artery: No stenosis. No dissection or occlusion. Left internal carotid artery: No stenosis of the extracranial segment. No dissection or occlusion. Left external carotid artery: No occlusion or stenosis of the origin. Right vertebral artery: No stenosis. No dissection or occlusion. Left vertebral artery: No stenosis. No dissection or occlusion. Soft tissues: Normal. No significant soft tissue swelling. Bones/joints: No acute fracture. Lungs: Moderate emphysematous changes at the lung apices. CT/CT angio headneck* [id number] IMPRESSION: No large vessel stenosis or occlusion. IMPRESSION: No stenosis or occlusion. REFERENCES: NASCET CRITERIA. The degree of stenosis in the cervical segment of the internal carotid artery is based on NASCET criteria. Normal is no stenosis. Mild is less than 50% stenosis. Moderate is 50-69% stenosis. Severe is 70% to 99% stenosis. Total occlusion is no detectable patent lumen.
[2025-03-12 14:17] LABS: Bilirubin Urine Negative (Negative); Blood Urine Negative (Negative); Glucose Urine UA Negative (Normal); Ketones Urine Negative (Negative); Leukocyte Esterase Urine Negative (Negative); Nitrate Urine Negative (Negative); Protein Urine Negative (Negative); Specific Gravity, Urine 1.009 (1.005-1.030); Urine Appearance Clear (CLEAR); Urine Color Yellow (Yellow); Urobilinogen Urine 0.2 mg/dL (Negative); pH Urine 5.5 (5-7)
[2025-03-12] MEDS: iohexol 350 mg/mL 500 mL Btl (per mL) IV (14:19)
[2025-03-12 14:20] LABS: Add Urine Microscopic? YES; Bacteria Urine None Seen /hpf; Hyaline Casts Urine 0.81 /lpf; RBC Urine 0-2 /hpf (0-2); Squamous Epithelial Cell Urine 0-5 /hpf (0-5); WBC Urine 0-5 /hpf (0-5)
[2025-03-12 14:34] LABS: Amphetamines Screen Urine Negative (Negative); Barbiturates Screen Urine Negative (Negative); Benzodiazepines Screen Urine Negative (Negative); Cocaine Screen Urine Negative (Negative); Opiate Screen Urine Negative (Negative); PCP Screen Urine Negative (Negative); THC Screen Urine Negative (Negative)
--- NOTE | 2025-03-12 15:12 | PM.HP ---
Providers/Chief Complaint Admitting Physician: Pinky Azevedo MD Chief Complaint: stroke like symptoms History of Present Illness Rick Persaud is a 50 year old male with no significant past medical history presented with complaint of left-sided upper and lower extremity and facial numbness. As per the patient he was all well until noon, when he started having left-sided facial numbness, gradually worsening and associated with left upper and lower extremity numbness. Hence came to ER for further evaluation around 12:45 PM. Denies any complaint of fever, cough, chest pain, palpitations, dizziness, shortness of breath, nausea/vomiting/diarrhea or urinary complaints. Denies any history of sick contact or recent travel. In ER stroke code called and patient received TNKase. His reports that his left-sided numbness has almost resolved. I evaluated him for bedside swallow, which he passed. He further states he quit smoking 1 year ago, occasional alcohol use and denies any drug abuse. No significant family history available. Does not take any prescription medications.He lives alone and works at [employer]. Review of Systems General: Reports: 10 or more systems reviewed and unremarkable except in HPI and below Medications/Allergies Home Medications ?Medication ?Instructions ?Recorded ?Confirmed ?Last Taken ?Type albuterol sulfate 90 mcg/actuation 2 inh inhalation QID PRN shortness 06/22/24 03/12/25 Unknown Rx aerosol inhaler of breath or wheezing #8.5 grams ibuprofen 200 mg tablet (Advil) 400 - 600 mg PO Q6H PRN Fever Or 03/12/25 03/12/25 03/04/25 History Pain vdvduhmrkicm-rlz-mosxs acid-vit 1 tab PO DAILY 03/12/25 03/12/25 03/04/25 History K-lycop 400 mcg-20 mcg-370 mcg tablet (Men's 50 Plus Multivitamin) Allergies Allergy/AdvReac Type Severity Reaction Status Date / Time No Known Allergies Allergy Verified 03/12/25 12:47 PFSH Acute PFSH: Medical History HTN (hypertension) Palpitations Vitals/I&O/Wt Last Vital Signs Temp 97.5 F L 03/12/25 12:32 Pulse 89 03/12/25 14:38 Resp 20 H 03/12/25 14:38 BP 131/92 03/12/25 14:38 Pulse Ox 94 03/12/25 14:30 O2 Del Method Room Air 03/12/25 12:32 Weight last 48 hrs Weight 98.883 kg Physical Exam Narrative: He is alert awake oriented x 3, not in acute distress Chest clear to auscultation bilaterally Cardiovascular normal heart sounds no murmurs Abdomen soft nontender nondistended normal bowel sounds Extremities no edema noted bilateral lower extremity. Neurological cranial nerves intact,-no sensory deficits noted, no motor deficits. Speech normal Data 03/12/25 12:57 03/12/25 12:57 A&P Assessment and plan (1) Acute ischemic stroke: Plan Rick Persaud is a 50 year old male with no significant past medical history presented with complaint of left-sided upper and lower extremity and facial numbness. As per the patient he was all well until noon, when he started having left-sided facial numbness, gradually worsening and associated with left upper and lower extremity numbness. Stroke code initiated in ER and he is s/p TNKase CT head negative for acute findings CTA head and neck negative for acute stenosis or occlusion Labs unremarkable #Acute ischemic stroke- Neurology Dr. Duran consulted in ED Post TNKase Postthrombolytic protocol Monitor in ICU Bedside swallow eval done, was normal Aspiration precautions Avoid inserting IVs Neurochecks every 4 hours PT/OT eval and treat Follow-up neurology for further recommendations Will repeat CT head in a.m. Check ECHO. Will need event monitor on discharge Will initiate aspirin and Plavix in a.m. Check lipid profile Check TSH DVT prophylaxis-SCD GI prophylaxis with IV Pepcid 20 mg twice daily CODE STATUS discussed with patient he is full code for now PDMP PDMP Reviewed: Not Reviewed Attestations Medical Necessity Statement*: He needs continued hospitalization not crossing 2 midnights for acute stroke post TNKase care and monitoring. Time Spent in Patient Care: 40minutes Coding Level of Care Code Acute Code for Jan Fwd Diagnoses Acute ischemic stroke I63.9 Time Spent (min) 40
--- NOTE | 2025-03-12 15:56 | PM.SAN ---
Stroke Alert Activation ED Arrival Date: 03/12/25 ED Arrival Time: 12:32 ED Physican at Bedside: 12:32 Last Known Normal/at Baseline: < 1 hour ago Other Last Known Well Infomation: The patient drove himself to the emergency room from work. He works in the [employer] department at [employer] and he was there when he started experiencing numbness in the left side of the face that then moved into the rest of his left side and then both sides. He was able to walk and he drove himself to the emergency department. He was clumsy in the left arm and leg when seen initially by triage nurse and stroke team was activated by her. He was evaluated by Wen Pozo who found marked ataxia on the left side such that he missed his nose on haxewi-ldxc-hcbewr and his hlpr-yetp-eukx was extremely ataxic. Dr. Loo and I performed telestroke and with stroke scale score 5, normal CT, only slightly elevated blood pressure (diastolic 102) and the patient on no blood thinners there was no contraindication to TNK. Thrombolytic was administered by Ms. Pozo at 1323. Stroke Alert Activated by: triage, Rhett Stroke Alert Activation Date: 03/12/25 Stroke Alert Activation Time: 12:32 Stroke MD @ Bedside Time: 12:32 NIH Stroke Scale Time: 13:30 NIH stroke score NIHSS: Level Of Consciousness - 1a: 0 Level Of Consciousness Questions - 1b: Both Correct Level Of Consciousness Commands - 1c: Both Correct Best Gaze - 2: Normal Visual [place] - 3: No Visual Loss Facial Palsy - 4: Normal Motor Arm Right - 5: No Drift Motor Arm Left - 5: No Drift Motor Leg Right - 6: No Drift Motor Leg Left - 6: No Drift Limb Ataxia - 7: Present In One Limb Sensory - 8: Normal Best Language - 9: No Aphasia Dysarthia - 10: Normal Extinction And Inattention - 11: 0 Score: Total Score: 1 Stroke Alert Data/Treatment Time to CT of Head: 12:36 CT Results Time: 12:51 CT Impression: Normal Stroke Risk Factors: hypertension and smoker (He quit) tPA Started Time: tPA Started - Time: 13:23 Patient & Family Educated on: Cause of Stroke, Risk Factors, Treament Plan, Stroke Education Booklet and tPA Risks/Benefits Other Patient & Family Education: The patient gave informed consent to Dr. Loo. I talked with Dr. Loo and we agreed that the patient should receive TNK. I talked with the patient about it when I arrived later at bedside and he was grateful to have been treated so rapidly. He is not aware of being hypertensive although he had high blood pressure on arrival here today. He already stopped smoking. I talked with Dr. Azevedo. I reviewed his echocardiogram which is normal. His CT angiogram is also normal. He will need to be observed overnight and CT scan of the head in the morning and if that is normal he can go home with neuro follow-up within 2 weeks. Aspirin with Plavix overlap for 3 weeks and a atorvastatin 40 mg. I started to go over the stroke book with the patient but he was taken off for his CTA and I did not complete it with him. Dr. Azevedo and we are in agreement for discharge planning for tomorrow. I left a note from my staff to get him worked into the clinic. Standardized Stroke Orders Used: Yes Critical Care Time Critical Care Time: 30 - 74 mins A&P Assessment and plan (1) Acute ischemic stroke: This is presumably a posterior circulation TIA. He had documented honey ataxia on the left witnessed by Dr. Loo and Iris Pozo, RN. I arrived later after he received TNK and his signs and symptoms have already resolved. Plan Admit ICU PDMP PDMP Reviewed: Not Reviewed Coding Level of Care Code Acute Code for [facility] Fwd Diagnoses Acute ischemic stroke I63.9
[2025-03-12] MEDS: atorvastatin 40 mg Tablet PO (17:21)
[2025-03-12] MEDS: famotidine 20 mg/2 mL INJ IVP (17:21)
[2025-03-13] VITALS (126 sets, daily range): BP systolic 107–146; BP diastolic 72–97; PULSE 58–126; RESP 9–30; TEMP 36.1–36.2; O2SAT 89–99
--- NOTE | 2025-03-13 00:52 | PC.NURSE ---
Patient noted to have dipped down into the mid to upper 80s several times when sleeping. At around 2330 patient was maintaining a saturation of 85%. 2L NC was administered to patient while resting. Sats have not been noted to be below 93% on the monitor by this nurse since putting the patient on oxygen, can verify with vital sign documentation for exact saturation/time.
[2025-03-13 04:21] LABS: Basophils % 0.5 %; Eosinophils # 0.1 10^3/uL (0.0-0.8); Eosinophils % 3.1 %; Hematocrit 42.8 % (37-53); Lymphocytes % 47.4 %; Mean Corpuscular HGB Conc 33.2 g/dL (30-55); Mean Corpuscular Hemoglobin 31.9 pg (27-33); Mean Corpuscular Volume 96.2 fl (82-101); Mean Platelet Volume 10.5 fL (7.4-10.4); Monocytes # 0.5 10^3/uL (0.2-0.9); Monocytes % 11.1 %; Neutrophils % 37.7 %; Nucleated Red Blood Cells % 0 %; Platelet Count 200 10^3/cmm (157-399); Red Blood Count 4.45 10^6/uL (3.85-5.65); Red Cell Distribution Width 13.3 % (12.1-15.1); White Blood Count 4.24 10^3/uL (3.29-11.43)
[2025-03-13] MEDS: famotidine 20 mg/2 mL INJ IVP (04:24)
[2025-03-13 04:33] LABS: Chol HDL Ratio 6.64 mg/dL (1.0-5.00); Cholesterol 186 mg/dL (0-200); HDL Cholesterol 28 mg/dL (60-100); LDL Cholesterol Calculated 123 mg/dL (50-129); LDL HDL Ratio 4.39 RATIO (0.00-3.22); Triglycerides 175 mg/dL (0-150)
[2025-03-13 04:40] LABS: Estmated Average Glucose 123; Hemoglobin A1C 5.9 % (4.0-6.0)
[2025-03-13 04:43] LABS: Blood Urea Nitrogen 8 mg/dL (6-20); Calcium 8.7 mg/dL (8.5-10.5); Carbon Dioxide 25 mmol/L (22-29); Chloride 105 mmol/L (98-107); Creatinine Clr Calc Pharmacy 111.3216; Glomerular Filtration Rate 88.6 mL/min (90-130); Glucose 104 mg/dL (65-115); Magnesium 2.3 mg/dL (1.7-2.3); Osmolality Calculated 287 mOsm/kg (285-295); Sodium 139 mmol/L (136-145); Thyroid Stimulating Hormone 1.07 uIU/mL (0.27-4.20)
[2025-03-13 04:54] LABS: Slide Review Slide Review Perform
[2025-03-13] MEDS: aspirin 81 mg EC Tablet PO (08:40)
--- NOTE | 2025-03-13 09:05 | P.DS_ITS ---
Discharge Providers Date of Admission: 03/12/25 14:18 Date of Discharge: March 13, 2025 Attending Provider at Admission: Pinky Azevedo MD Attending Provider at Discharge: Pinky Azevedo MD Diagnoses at Discharge Discharge Diagnosis (1) Acute ischemic stroke: Status: Acute Reason for Visit Reason for Visit: stroke like symptoms Brief History: Rick Persaud is a 50 year old male with no significant past medical history presented with complaint of left-sided upper and lower extremity and facial numbness. As per the patient he was all well until noon, when he started having left-sided facial numbness, gradually worsening and associated with left upper and lower extremity numbness. Hence came to ER for further evaluation around 12:45 PM. Denies any complaint of fever, cough, chest pain, palpitations, dizziness, shortness of breath, nausea/vomiting/diarrhea or urinary complaints. Denies any history of sick contact or recent travel. In ER stroke code called and patient received TNKase. His reports that his left-sided numbness has almost resolved. I evaluated him for bedside swallow, which he passed. He further states he quit smoking 1 year ago, occasional alcohol use and denies any drug abuse. No significant family history available. Does not take any prescription medications.He lives alone and works at [employer]. Hospital Course Hospital Course Admitted for acute ischemic stroke. He is s/p TNKase. Was monitored in ICU. He is neurologically back to his baseline. Repeat CT head today was negative for acute findings. Will discharge him home today with p.o. aspirin, Plavix and atorvastatin. Physical Exam Narrative: He is alert awake oriented x 3, not in acute distress Chest clear to auscultation bilaterally Cardiovascular normal heart sounds no murmurs Abdomen soft nontender nondistended normal bowel sounds Extremities no edema noted bilateral lower extremity. Neurological cranial nerves intact,-no sensory deficits noted, no motor deficits. Speech normal Discharge Data Studies Completed and Pending Completed Studies During Hospitalization Category Date Time Status CT head thrombolytic [id number] Stat Cat Scan 03/12/25 12:36 Completed CTA head neck [CT angio headneck* [id number]] Stat Cat Scan 03/12/25 13:43 Completed Pending at discharge Category Date Time Status CT head wo con* [id number] Stat Cat Scan 03/13/25 10:00 Ordered CV. echo complete* [id number] Stat Ultrasound 03/13/25 18:09 Taken Radiology Impressions Head CT 03/12/25 12:36 IMPRESSION: No acute intracranial abnormality. ASSESSMENT: ASPECTS ([place] Stroke Program Early CT Score) is 10. ADDENDUM: 03/12/25 1252 Findings were discussed with Dr. Loo at 03/12/2025 12:51 PM CDT. Head/Neck CTA 03/12/25 13:43 IMPRESSION: No large vessel stenosis or occlusion. IMPRESSION: No stenosis or occlusion. REFERENCES: NASCET CRITERIA. The degree of stenosis in the cervical segment of the internal carotid artery is based on NASCET criteria. Normal is no stenosis. Mild is less than 50% stenosis. Moderate is 50-69% stenosis. Severe is 70% to 99% stenosis. Total occlusion is no detectable patent lumen. ADDENDUM: 03/12/25 1438 Findings were discussed with BLADIMIR LOO at 03/12/2025 2:36 PM CDT. Laboratory Results WBC 4.24 10^3/uL (3.29-11.43) 03/13/25 03:43 RBC 4.45 10^6/uL (3.85-5.65) 03/13/25 03:43 Hgb 14.20 g/dL (11.27-16.99) 03/13/25 03:43 Hct 42.8 % (37-53) 03/13/25 03:43 MCV 96.2 fl (82-101) 03/13/25 03:43 MCH 31.9 pg (27-33) 03/13/25 03:43 MCHC 33.2 g/dL (30-55) 03/13/25 03:43 RDW 13.3 % (12.1-15.1) 03/13/25 03:43 Plt Count 200 10^3/cmm (157-399) 03/13/25 03:43 MPV 10.5 fL (7.4-10.4) H 03/13/25 03:43 Neut % (Auto) 37.7 % 03/13/25 03:43 Lymph % (Auto) 47.4 % 03/13/25 03:43 [place] % (Auto) 11.1 % 03/13/25 03:43 Eos % (Auto) 3.1 % 03/13/25 03:43 Baso % (Auto) 0.5 % 03/13/25 03:43 Neut # (Auto) 1.60 10^3/uL (1.8-7.7) L 03/13/25 03:43 Lymph # (Auto) 2.0 10^3/uL (0.8-4.8) 03/13/25 03:43 [place] # (Auto) 0.5 10^3/uL (0.2-0.9) 03/13/25 03:43 Eos # (Auto) 0.1 10^3/uL (0.0-0.8) 03/13/25 03:43 Baso # (Auto) 0.0 10^3/uL (0.0-0.1) 03/13/25 03:43 Nucleated RBC % (auto) 0 % 03/13/25 03:43 Nucleated RBCs # 0.0 /100WBC 03/13/25 03:43 PT 14.30 SECONDS (12.1-14.9) 03/12/25 12:57 INR 1.03 (0.8-1.2) 03/12/25 12:57 APTT 28.8 SECONDS (23.9-36.7) 03/12/25 12:57 Sodium 139 mmol/L (136-145) 03/13/25 03:43 Potassium 4.0 mmol/L (3.5-5.1) 03/13/25 03:43 Chloride 105 mmol/L (98-107) 03/13/25 03:43 Carbon Dioxide 25 mmol/L (22-29) 03/13/25 03:43 Anion Gap 13.0 (5-19) 03/13/25 03:43 BUN 8 mg/dL (6-20) 03/13/25 03:43 Creatinine 0.9 mg/dL (0.7-1.2) 03/13/25 03:43 GFR Calculation 88.6 mL/min (90-130) L 03/13/25 03:43 Glucose 104 mg/dL (65-115) 03/13/25 03:43 POC Glucose 108 mg/dL (70-110) 03/12/25 12:43 Estimat Average Glucose 123 03/13/25 03:43 Hemoglobin A1c 5.9 % (4.0-6.0) 03/13/25 03:43 Calculated Osmolality 287 mOsm/kg (285-295) 03/13/25 03:43 Calcium 8.7 mg/dL (8.5-10.5) 03/13/25 03:43 Magnesium 2.3 mg/dL (1.7-2.3) 03/13/25 03:43 Total Bilirubin 0.2 mg/dL (0.15-1.2) 03/12/25 12:57 AST 25 U/L (0-40) 03/12/25 12:57 ALT 22 U/L (0-41) 03/12/25 12:57 Alkaline Phosphatase 82 U/L (40-130) 03/12/25 12:57 Total Protein 7.3 g/dL (6.6-8.7) 03/12/25 12:57 Albumin 4.1 g/dL (3.5-5.2) 03/12/25 12:57 Globulin 3.2 g/dL (1.3-4.6) 03/12/25 12:57 Triglycerides 175 mg/dL (0-150) H 03/13/25 03:43 Cholesterol 186 mg/dL (0-200) 03/13/25 03:43 LDL Cholesterol, Calc 123 mg/dL (50-129) 03/13/25 03:43 HDL Cholesterol 28 mg/dL (60-100) L 03/13/25 03:43 LDL/HDL Ratio 4.39 RATIO (0.00-3.22) H 03/13/25 03:43 Cholesterol/HDL Ratio 6.64 mg/dL (1.0-5.00) H 03/13/25 03:43 TSH 1.07 uIU/mL (0.27-4.20) 03/13/25 03:43 Urine Color Yellow (Yellow) 03/12/25 14:07 Urine Appearance Clear (CLEAR) 03/12/25 14:07 Urine pH 5.5 (5-7) 03/12/25 14:07 Ur Specific [place] 1.009 (1.005-1.030) 03/12/25 14:07 Urine Protein Negative (Negative) 03/12/25 14:07 Urine Glucose (UA) Negative (Normal) 03/12/25 14:07 Urine Ketones Negative (Negative) 03/12/25 14:07 Urine Blood Negative (Negative) 03/12/25 14:07 Urine Nitrate Negative (Negative) 03/12/25 14:07 Urine Bilirubin Negative (Negative) 03/12/25 14:07 Urine Urobilinogen 0.2 mg/dL (Negative) 03/12/25 14:07 Ur Leukocyte Esterase Negative (Negative) 03/12/25 14:07 Urine RBC 0-2 /hpf (0-2) 03/12/25 14:07 Urine WBC 0-5 /hpf (0-5) 03/12/25 14:07 Ur Squamous Epith Cells 0-5 /hpf (0-5) 03/12/25 14:07 Amorphous Sediment Not Reportable 03/12/25 14:07 Urine Bacteria None seen /hpf (NONE) 03/12/25 14:07 Hyaline Casts 0.81 /lpf 03/12/25 14:07 Urine Opiates Screen Negative ng/mL (Negative) 03/12/25 14:07 Ur Barbiturates Screen Negative ng/mL (Negative) 03/12/25 14:07 Ur Phencyclidine Scrn Negative ng/mL (Negative) 03/12/25 14:07 Ur Amphetamines Screen Negative ng/mL (Negative) 03/12/25 14:07 U Benzodiazepines Scrn Negative ng/mL (Negative) 03/12/25 14:07 Urine Cocaine Screen Negative ng/mL (Negative) 03/12/25 14:07 U Marijuana (THC) Screen Negative ng/mL (Negative) 03/12/25 14:07 Vitals Last Vital Signs Temp 97.0 F L 03/13/25 08:00 Pulse 67 03/13/25 08:00 Resp 24 H 03/13/25 08:00 BP 128/77 03/13/25 08:00 Pulse Ox 89 L 03/13/25 06:00 O2 Del Method Nasal Cannula 03/13/25 04:00 O2 Flow Rate 2 03/13/25 04:00 Discharge Plan Discharge Patient Disposition: Home Condition: Stable Prescriptions: New aspirin 81 mg Tablet,Delayed Release (Dr/Ec) 81 mg PO DAILY 30 Days Qty: 30 0RF atorvastatin 40 mg Tablet 40 mg PO BEDTIME 30 Days Qty: 30 0RF clopidogrel [Plavix] 75 mg tablet 75 mg PO DAILY 30 Days Qty: 30 0RF Continued albuterol sulfate 90 mcg/actuation HFA aerosol inhaler 2 inh inhalation QID PRN (Reason: shortness of breath or wheezing) Qty: 8.5 0RF Men's 50 Plus Multivitamin 400-20-370 mcg Tablet 1 tab PO DAILY Discontinued ibuprofen [Advil] 200 mg Tablet 400 - 600 mg PO Q6H PRN (Reason: Fever Or Pain) Discharge Orders: Discharge Order (Routine); Ordered 03/13/25 Ordered By: Pinky Azevedo Discharge Diet: Cardiac Discharge Activity: Increase activity as tolerated Patient Instructions: Heart Palpitations, Hypertension, Ischemic Stroke (DC), Self Care Measures After a Stroke (DC), Opioid Safety Discharge Attestations Time Spent in Discharge Care*: less than 30 min Quality Metrics Clinical Quality Measures [ No reported AMI, CVA or VTE this stay] Coding Level of Care Code Acute Code for [facility] Fwd Diagnoses Acute ischemic stroke I63.9 Time Spent (min) 15
--- NOTE | 2025-03-13 10:00 | CTR_ITS ---
PROCEDURE INFORMATION: Exam: CT Head Without Contrast Exam date and time: 03/13/2025 9:12 AM Age: 50 years old Clinical indication: Altered mental status/memory loss; Additional info: Post tnkase TECHNIQUE: Imaging protocol: Computed tomography of the head without contrast. Radiation optimization: All CT scans at this facility use at least one of these dose optimization techniques: automated exposure control; mA and/or kV adjustment per patient size (includes targeted exams where dose is matched to clinical indication); or iterative reconstruction. COMPARISON: CT angio headneck* [id number] 03/12/2025 2:09 PM RADIATION DOSE METRICS: Total DLP (mGy-cm): 1098.08 FINDINGS: Brain: There is no evidence of acute parenchymal hemorrhage, extra-axial collection, or acute infarction. There is no mass effect, midline shift, or downward herniation. Cerebral ventricles: No ventriculomegaly. Paranasal sinuses: There is mild paranasal sinus mucosal thickening. There is a small left sphenoid sinus fluid level. Mastoid air cells: Visualized mastoid air cells are well aerated. Bones: Unremarkable. No acute fracture. Soft tissues: Unremarkable. CT/CT head wo con* [id number] IMPRESSION: No acute intracranial abnormality.
--- NOTE | 2025-03-13 18:09 | USCV_ITS ---
Rick Persaud Age: 50 Gender: M : 1975 Exam Date: 03/13/2025 06:42 Ordering Phys: Pinky Azevedo MD Technologist: Bebeto Coppola Exam Location: [facility] [place] Indication: acute ischemic stroke BP: 146 / 96 HR: 83 Rhythm: Sinus Technical Quality: Adequate MEASUREMENTS (Male / Female) Normal Values 2D ECHO LV Diastolic Diameter PLAX 4.8 cm 4.2 - 5.9 / 3.9 - 5.3 cm IVS Diastolic Thickness 1.2 cm 0.6 - 1.0 / 0.6 - 0.9 cm IVS Systolic Thickness 1.8 cm LVPW Diastolic Thickness 1.6 cm 0.6 - 1.0 / 0.6 - 0.9 cm LVPW Systolic Thickness 2.5 cm LVOT Diameter 2.1 cm LV Ejection Fraction 2D Teich 69.2 % LV Ejection Fraction MOD 4C 64.5 % LV Ejection Fraction MOD 2C 68.5 % LV Ejection Fraction 2C AL 68.2 % LA Diameter 4.1 cm RA Systolic Volume 4C AL 52.9 ml RA Systolic Volume 4C MOD 52.5 ml LA Sys Volume AL 50.3 cm cubed LA Sys Volume Index AL 22.6 cm cubed/m squared Aorta at Sinotubular Diameter 2.9 cm IVC Diameter 2.0 cm M-MODE LA Ao Ratio MM 1.2 AV Cusp Separation MM 2.0 cm DOPPLER AV Peak Velocity 109.3 cm/s LVOT Peak Velocity 87.0 cm/s AV Area Cont Eq vti 2.8 cm squared AV Area Cont Eq pk 2.8 cm squared MV Peak Velocity 76.0 cm/s MV Area PHT 4.3 cm squared Mitral E to A Ratio 0.7 TV Peak Velocity 189.0 cm/s TR Peak Velocity 197.0 cm/s TR Peak Gradient 15.5 mmHg TR Mean Velocity 169.0 cm/s TR Mean Gradient 11.7 mmHg TR Velocity Time Integral 46.3 cm PV Peak Velocity 88.7 cm/s RV Ejection Time 0.3 s FINDINGS Left Ventricle Normal left ventricular size, systolic function and wall thickness, with no regional wall motion abnormalities. Left ventricular ejection fraction is estimated at 60 %. Grade I/IV diastolic dysfunction (abnormal relaxation filling pattern), normal to mildly elevated filling pressures. Right Ventricle The right ventricle is normal in size and function. Right Atrium The right atrium is normal in size. Left Atrium The left atrium is normal in size. Mitral Valve Mildly thickened mitral valve. No mitral valve stenosis. Mild mitral valve regurgitation. Aortic Valve Mild aortic valve calcification. No aortic valve stenosis. Trace aortic valve regurgitation. Tricuspid Valve Structurally normal tricuspid valve without significant stenosis or regurgitation. Pulmonary artery systolic pressure is normal. Pulmonic Valve Structurally normal pulmonic valve without significant stenosis. There is no pulmonic regurgitation. Pericardium Normal pericardium without effusion. Aorta Normal ascending aorta dimension. IVC The inferior vena cava appears normal. CONCLUSIONS Normal left ventricular size, systolic function and wall thickness, with no regional wall motion abnormalities. Left ventricular ejection fraction is estimated at 60 %. Grade I/IV diastolic dysfunction (abnormal relaxation filling pattern), normal to mildly elevated filling pressures. Mildly thickened mitral valve. No mitral valve stenosis. Mild mitral valve regurgitation. Right atrial pressure is around 5 mm of mercury. Holland Peña MD (Electronically Signed) Final Date: 13 March 2025 15:45 S
== END 2025-03-13 11:00 | disposition home or self-care (01) ==
LOC: ER 14:17 → ICU 15:55
PROVIDERS: Admitting Provider Internal Medicine; Emergency Provider Family Medicine; Visit Provider Internal Medicine
DX: I63.9 Cerebral infarction, unspecified (principal); R29.705 NIHSS score 5; I10 Essential (primary) hypertension; R00.2 Palpitations; Z87.891 Personal history of nicotine dependence
CPT/HCPCS: 36415; 36416; 70450; 70496; 70498; 80048; 80053; 80061; 80306; 81001; 82962; 83036; 83735; 84443; 85025; 85610; 85730; 93005; 93306; 96374; 96375; 96376; 99291; G0378; J3101; J3490; J9999

== ENCOUNTER 2025-07-23 20:41 | Emergency (ER) | payer OTHER, SELFPAY ==
[2025-07-23 20:44] VITALS: BP 134/94; PULSE 83; RESP 17; TEMP 36.6; O2SAT 95; BMI 29.3
[2025-07-23] MEDS: sulfamethoxazole-trimeth DS 160-800 mg Tablet 1 TAB PO (21:36)
[2025-07-23] MEDS: tetanus-dipt-pertussis 0.5 mL SDV IM (21:36)
--- NOTE | 2025-07-23 23:17 | ED_ITS ---
HPI - Animal Bite General: Chief Complaint: Animal Bite Stated Complaint: bite on left arm Time Seen by Provider: 07/23/25 20:52 Source: patient Mode of arrival: ambulatory Limitations: no limitations History of Present Illness: Patient is a 50-year-old male who presents the emergency department complaining of a lesion to his left arm that he believes is an insect bite. States he did not see any specific bug but felt sharp sensation and notes the lesion is red and there is swelling to his arm. No systemic symptoms reported such as fever or nausea/vomiting. Tetanus not up-to-date. Vital stable at this time, nontoxic-appearing. MD complaint: other (Possible spider bite) Onset (ago): hour(s) Associated symptoms: Deny chills, fever(s) or headache(s) Related Data Home Medications ?Medication ?Instructions ?Recorded ?Confirmed [id number] acid-vit 1 tab PO DAILY 5 04/15/25 K-lycop 400 mcg-20 mcg-370 mcg tablet (Men's 50 Plus Multivitamin) Previous Rx's ?Medication ?Instructions ?Recorded albuterol sulfate 90 mcg/actuation 2 inh inhalation QI D PRN shortness 06/22/24 aerosol inhaler of breath or wheezing #8.5 g agustín sulfamethoxazole 800 1 tab PO BID 7 days #14 tabs 07/23/25 mg-trimethoprim 160 mg tablet (Bactrim DS) Allergies Allergy/AdvReac Type Severity Reaction Status Date / Time No Known Allergies Allergy Verified 03/12/25 12:47 Review of Systems General: Reports: 10 or more systems reviewed and unremarkable except in HPI and below Const: Denies: fever(s) or chills Card: Denies: chest pain Resp: Denies: dyspnea GI: Denies: abdominal pain, nausea, vomiting or diarrhea Musc: Denies: extremity pain or joint pain Skin/Breast: Reports: erythema, skin pain, skin tenderness, skin swelling and new lesions (Possible spider bite to left arm); Denies: rash Neuro: Denies: headache(s) PFSH ED PFSH: Medical History HTN (hypertension) Palpitations Social History Smoking and tobacco/nicotine status: former use of tobacco/nicotine (quit Apr 01 2024) Physical Exam Const: COMMON NORMALS: no acute distress, average body habitus, patient oriented x3, no limitations, healthy appearing, alert and well nourished HENMT: COMMON NORMALS: normocephalic and atraumatic HEAD & SCALP: normocephalic and atraumatic Neck/C-Spine: COMMON NORMALS: full ROM, no lymphadenopathy, supple and no meningeal signs Resp: COMMON NORMALS: normal respiratory effort, No use of accessory muscles and clear to auscultation bilaterally AUSCULTATION: clear to auscultation bilaterally Cardio: COMMON NORMALS: regular rate and regular rhythm RATE: regular rate RHYTHM: regular rhythm Extremity: COMMON NORMALS: full ROM and capillary refill normal Neuro: COMMON NORMALS: patient oriented x3 SENSORIUM/ORIENTATION: Yes alert MENINGEAL SIGNS: Yes no meningeal signs Skin: COMMON NORMALS: turgor normal NARRATIVE SKIN EXAM: Bite lesion to left forearm with surrounding cellulitis and induration, no palpable fluctuance. No red streaking. Central skin breakdown. GENERAL SKIN EXAM: turgor normal Course Vital Signs: Vital signs: Vital Signs Temperature 97.9 F 07/23/25 20:44 Pulse Rate 83 07/23/25 20:44 Respiratory Rate 17 07/23/25 20:44 Blood Pressure 134/94 07/23/25 20:44 Pulse Oximetry 95 07/23/25 20:44 Oxygen Delivery Me thod Room Air 07/23/25 20:44 MDM - Animal Bite Medical Decision Making He has no systemic symptoms to report, and this is presenting as a bug bite lesion and with the small area of central necrosis could possibly be a brown recluse. Will start on Bactrim, he is stable for discharge home with treatment and is given strict return precautions. No lab work necessary at this time or further workup. No radiology studies performed this visit Discharge Plan Discharge Patient Disposition: Home Clinical Impression: Brown recluse spider bite Qualifiers: Encounter type: initial encounter Injury intent: accidental or unintentional Qualified Code(s): T63.331A - Toxic effect of venom of brown recluse spider, accidental (unintentional), initial encounter Condition: Stable Prescriptions: New sulfamethoxazole-trimethoprim [Bactrim DS] 800-160 mg tablet 1 tab PO BID 7 Days Qty: 14 0RF No Action albuterol sulfate 90 mcg/actuation HFA aerosol inhaler 2 inh inhalation QID PRN (Reason: shortness of breath or wheezing) Qty: 8.5 0RF Men's 50 Plus Multivitamin 400-20-370 mcg Tablet 1 tab PO DAILY Discharge Orders: Discharge ED (Routine); Ordered 07/23/25 Ordered By: Miguel Goldsmith Patient Instructions: Patient Portal & Nikolay Instructions Activity Restrictions/Additional Instructions: Brown Recluse Bite Discharge Discharge Instructions: Suspected Brown Recluse Spider Bite (Left Arm) Diagnosis and Rationale: The patient is a 50-year-old male with a suspected brown recluse spider bite on the left arm. The clinical approach is based on evidence that most brown recluse bites are self-limited and heal with conservative management, but secondary bacterial infection may warrant antibiotic therapy.[1] https://www.nejm.org/doi/full/10.1056/EUQDlc611445 [2] https://pubmed.ncbi.nlm.nih.gov/87293864 [3] https://pubmed.ncbi.nlm.nih.gov/00948206 Wound Care and Supportive Measures: - Local wound care: Clean the bite area gently with soap and water daily. Apply a clean, dry dressing. - Elevation and immobilization: Keep the affected arm elevated as much as possible to reduce swelling. [1] https://www.nejm.org/doi/full/10.1056/GKBPel547384 [4] https://www.ahajournals.org/doi/abs/10.1161/CIR.3014167406843352?url_ver=Z39.88- 2003&rfr_id=jeferson:rid:crossref.org&rfr_dat=cr_pub%20%200pubmed [2] https://pubmed.ncbi.nlm.nih.gov/39205522 - Cold compresses: Apply ice packs (wrapped in cloth) to the area for 10?15 minutes every 2?4 hours during the first 24?48 hours to help with pain and inflammation. [1] https://www.nejm.org/doi/full/10.1056/TDGLxc799883 [4] h ttps://www.ahajournals.org/doi/abs/10.1161/CIR.7035494824388611?url_ver=2002&rfr_id=jeferson:rid:crossref.org&rfr_dat=cr_pub%20%200pubmed - Pain management: Use acetaminophen or NSAIDs as needed for pain control, unless contraindicated. [4] https://www.ahajournals.org/doi/abs/10.1161/CIR.1804480481816097?url_ver=2002&rfr_id=jefreson:rid:crossref.org&rfr_dat=cr_pub%20%200pubmed [2] https://pubmed.ncbi.nlm.nih.gov/22586795 - Tetanus prophylaxis: Ensure tetanus immunization is up to date.[1] https://www.nej.org/doi/full/10.1056/SNAXbx986396 Antibiotic Therapy: - Medication: Bactrim (sulfamethoxazole/trimethoprim) - Dosage: 1 double-strength (DS) tablet (800 mg/160 mg) orally twice daily for 7 days. [5] https://iexerci.se.[employer].PSafe.gov/dailymed/drugInfo.cfm?setid=r42l5m81-2w25-5n16-i0v3 -yt11592ans65 - Indication: Initiated for suspected secondary bacterial infection, as recommended for infected animal bite?related wounds by the Infectious Diseases Society of [place]. [6] https://[employer].com/geovanny/article- lookup/doi/10.1093/geovanny/rnh985 - Instructions: - Take Bactrim exactly as prescribed; do not skip doses and complete the full course, even if symptoms improve early. [5] https://iexerci.se.[employer].PSafe.gov/dailymed/drugInfo.cfm?setid=[id number]-h0f2 -aj97000ewj68 - Maintain adequate hydration to reduce the risk of crystalluria. [5] https://iexerci.se.[employer].PSafe.gov/dailymed/drugInfo.cfm?setid=d07b8a19-7m96-4s25-a9x0 -vs70320gvu94 - Monitor for signs of hypersensitivity or serious adverse reactions (rash, fever, sore throat, joint pain, cough, chest pain, shortness of breath, pallor, purpura, jaundice). Discontinue immediately and seek medical attention if these occur.[5] https://dailymed.[employer].nih.gov/dailymed/drugInfo.cfm?setid=y84i4r79-5q92-5n91-m5u3 -iq75729xrt22 Monitoring and Follow-Up: - Expected course: Most brown recluse bites heal without intervention, but necrosis and slow healing may occur in some cases. Lesion severity predicts healing time; severe lesions may take weeks to months to resolve. [7] https://pubmed.ncbi.nlm.nih.gov/73384260 [3] https://pubmed.ncbi.nlm.nih.gov/99661440 - Warning signs: Seek immediate medical attention for any of the following: - Increasing redness, swelling, warmth, or purulent drainage from the wound - Fever, chills, or systemic symptoms (e.g., muscle aches, hemolysis, dark urine) - Rapid progression of skin necrosis or ulceration - Signs of allergic reaction or adverse drug effects as above[1] https://www.nejm.org/doi/full/10.1056/YVTAep977018 [8] https://pubmed.ncbi.nlm.nih.gov/61132823 [5] https://dailymed.[employer].nih.gov/dailymed/drugInfo.cfm?setid=[id number]-u6v0 -aw55468gkz66 - Follow-up: Schedule outpatient follow-up within 3?7 days to reassess wound healing and response to therapy. Earlier evaluation is warranted if symptoms worsen. Additional Considerations: - There is no proven benefit to corticosteroids, dapsone, or surgical excision in routine cases; these are reserved for select severe or atypical presentations.[1] https://www.nejm.org/doi/full/10.1056/UXDKgx509746 [9] https://pubmed.ncbi.nlm.nih.gov/80271881 - Most bites do not result in long-term complications, but scarring may occur in severe cases.[7] https://pubmed.ncbi.nlm.nih.gov/33854671 [3] https://pubmed.ncbi.nlm.nih.gov/49117798 Patient Education: - Brown recluse bites are often overdiagnosed; definitive diagnosis requires identification of the spider by an expert.[1] https://www.nejm.org/doi/full/10.1056/FBHYzp863556 [10] https://pubmed.ncbi.nlm.nih.gov/36186710 - Conservative management is the mainstay of therapy; antibiotics are used only if infection is suspected.[1] https://www.nejm.org/doi/full/10.1056/MWCJmg776562 [2] https://pubmed.ncbi.nlm.nih.gov/15307434 [6] https://[employer].com/geovanny/article-lookup/doi/10.1093/geovanny/nks414 [3] https://pubmed.ncbi.nlm.nih.gov/85543591 Contact Information: - For questions or concerns, contact the clinic or seek emergency care as appropriate. References * Bites of Brown Recluse Spiders and Suspected Necrotic Arachnidism https://www.nejm.org/doi/full/10.1056/VOUPuy230686 . Amrita DL, Lashanda RS. The [place] Journal of Medicine. 2005;352(7):700-7. doi:10.1056/HIPMyh284520. * Arthropod Bites and Stings https://pubmed.ncbi.nlm.nih.gov/89785310 . Herfran J, Baez MJ, Lucia RS. [place] Family Physician. 2021;106(2):137-147. * The Clinical Characteristics of Brown Recluse Spider Bites Treated by Family Physicians: An [facility] Study. [facility] [place] Research [facility] https://pubmed.ncbi.nlm.nih.gov/55286951 . Rolan Alex, Janny JW. The Journal of Family Practice. 1999;48(7):536-42. * 2023 [place] Heart Association and [place] Guidelines for First Aid https://www.ahajournals.org/doi/abs/10.1161/CIR.7961432515908321?url_ver=Z39.8 &rfr_id=jeferson:rid:crossref.org&rfr_dat=cr_pub%20%200pubmed . Checo Knight EK, Antony MESA, Augusto K, et al. Circulation. 2023;150(24):n569-r005. doi:10.1161/CIR.4080879100502846. * Bactrim https://dailymed.nlm.nih.gov/dailymed/drugInfo.cfm?setid=b98f6a39-3t44-2r46-d1 e1-gp28797mqr65 . Food and Drug Administration. Updated date: 2024-11-15. * Practice Guidelines for the Diagnosis and Management of Skin and Soft Tissue Infections: 2014 Update by the Infectious Diseases Society of [place] https://academic.[employer].com/geovanny/article-lookup/doi/10.1093/geovanny/kkx876 . Baldomero DL, Jayson AL, Chambers HF, et al. Clinical Infectious Diseases : An Official Publication of the Infectious Diseases Society of [place]. 2014;59(2):147-59. doi:10.1093/geovanny/wte367. * Nineteen Documented Cases of Loxosceles Reclusa Envenomation https://pubmed.ncbi.nlm.nih.gov/24616989 . Mat HH, Heartteresa SB, Peter LL, et al. Journal of the [place] Academy of Dermatology. 2001;44(4):603-8. doi:10.1067/mjd.2001.472850. * Atypical Systemic and Dermatologic Loxoscelism in a Non-Endemic Region of the [place] https://pubmed.ncbi.nlm.nih.gov/49485937 . Stephanie JW, Jaylene KT, Debo RC, Maryanne KL, Nathalie SR. Clinical Toxicology ([place] 2020 ;59(3):260-264. doi:10.1080/18061377.2020.8540729. * Envenomation From the Brown Recluse Spider: Review of Mechanism and Treatment Options https://pubmed.ncbi.nlm.nih.gov/21191745 . Ed CONDE, Zina Mcdonnell. [place] Journal of Therapeutics. 1996;3(10):724-34. doi:10.1097/24248960-261594059-87037. * Necrotic Ulcers Caused by Loxosceles Rufescens Bites: A Report of Seven P atients and Scanning Electron Microscopy of the Spider https://pubmed.ncbi.nlm.nih.gov/26372515 . Rima S, Orlando R, Atif G. Journal of Dermatology : EJD. 2023;34(3):267-270. doi:10.1684/ejd.2023.4700. Print Language: Qatari Coding Level of Care Code ED Jockey Valet for Jan Sauceda
== END 2025-07-23 21:44 | disposition home or self-care (01) ==
PROVIDERS: Emergency Provider Physician Assistant
DX: T63.331A Toxic effect of venom of brown recluse spider, accidental (unintentional), initial encounter (principal); Z23 Encounter for immunization
CPT/HCPCS: 90471; 90715; 99283; J9999